=== PATIENT | male | born 1985 | race Two or more races ===

== ENCOUNTER 2020-02-14 08:40 | Emergency (ER) | payer OTHER ==
[~2020-02-14] VITALS: Ht 172.7 cm; Wt 115.2 kg
[2020-02-14] MEDS ORDERED: AMOXICILLIN500 MG (08:52)
[2020-02-14] MEDS ORDERED: NORFLEX100MG PO (11:25)
[2020-02-14] MEDS ORDERED: KETO10TA2 PO (11:25)
== END 2020-02-14 11:35 | disposition home or self-care (01) ==
LOC: ER 08:40
DX: S80.12XA Contusion of left lower leg, initial encounter (principal); S80.11XA Contusion of right lower leg, initial encounter; V49.88XA Car occupant (driver) (passenger) injured in other specified transport accidents, initial encounter; Y93.89 Activity, other specified; Y92.413 State road as the place of occurrence of the external cause; Y99.8 Other external cause status